=== PATIENT | male | born 1955 | race Caucasian/White ===

== ENCOUNTER 2018-02-10 07:06 | Day surgery (SDC) | payer BC, SELFPAY ==
--- NOTE | 2018-02-09 15:09 | POEE_ITS ---
History of Present Illness Chief Complaint: Progressive decreased vision, left eye Narrative: The patient is a 62-year-old male with history of progressive decreased vision at both distance and near in his left eye. He also notes significant difficulty with glare. He has a history of myopia but does not take his glasses off to read. On examination he was noted to have bilateral nuclear and cortical cataract with posterior subcapsular cataract of the left eye. The option of cataract surgery was offered to the patient and he felt he was symptomatic enough that he wished to proceed. NOTE: The Chief Complaint, HPI, Past Medical History, Past Surgical History, Family History, Social History, Medications, and complete Ophthalmic Exam with detailed Assessment and Plan have already been documented in the patient's outpatient ophthalmic record and are not covered again in detail here. PFSH Cortical cataract of left eye (Acute) Nuclear sclerotic cataract of left eye (Acute) Posterior subcapsular age-related cataract of left eye (Acute) DM (diabetes mellitus) Family History Grandmother No problems noted. Colonoscopy - MAC (03/19/16) hand surgery Family History Grandmother No problems noted. Medical History Cortical cataract of left eye (Acute) Nuclear sclerotic cataract of left eye (Acute) Posterior subcapsular age-related cataract of left eye (Acute) DM (diabetes mellitus) Social History Smoking/Tobacco Use Status: Former Tobacco Use Surgical History Colonoscopy - MAC (03/19/16) hand surgery Social History Smoking/Tobacco Use Status: Former Tobacco Use Meds Home Medications Medication Instructions Recorded Confirmed Type aspirin [Low Dose Aspirin Ec] 81 mg PO HS tab-cap NS 02/06/16 02/06/18 History insulin glargine [Lantus Solostar] 40 - 45 u SUB-Q HS NS 02/06/16 02/06/18 History insulin lispro [Humalog Syringe] 5 - 15 u SUB-Q QID NS 02/06/16 02/05/18 History losartan 25 mg PO HS tab-cap NS 02/06/16 02/06/18 History lovastatin 20 mg PO HS tab-cap NS 02/06/16 02/06/18 History Allergies Allergy/AdvReac Type Severity Reaction Status Date / Time lisinopril Allergy Unverified 02/06/16 10:21 Exam OCULAR EXAM:: Most recent ocular examination reveals best corrected vision of 20 /20 right eye, 20/30 left eye. Pupils equal, round, and reactive without afferent pupillary defect intraocular pressure is 17 OD, 16 OS. Extraocular motility is normal. Slit-lamp examination reveals pupils dilating only to 4 mm OU. Anterior chamber depth is intermediate. A 1+ nuclear/cortical cataract is present OD. 1+ nuclear/cortical cataract OS with 2+ posterior subcapsular cataract OS. Dilated funduscopic examination reveals a disc cupping of 0.6 OD 0.7 OS with trace peyton-papillary atrophy. The retinal vasculature is normal. There is some mild macular pigmentary changes. Peripheral retina and vitreous is normal. BRIGHTNESS ACUITY TESTING (BAT):: Brightness acuity testing of the left eye off is 20/30, low is 20/25, medium is 20/30, high is 20/40 Assessment and Plan (1) Posterior subcapsular age-related cataract of left eye: Current visit: No Status: Acute Assessment: Visually significant cataract, left eye. Plan: Cataract extraction with intraocular lens implantation, left eye (2) Nuclear sclerotic cataract of left eye: Current visit: No Status: Acute Assessment: Visually significant cataract, left eye. Plan: Cataract extraction with intraocular lens implantation, left eye (3) Cortical cataract of left eye: Current visit: No Status: Acute Assessment: Visually significant cataract, left eye. Plan: Cataract extraction with intraocular lens implantation, left eye Note: NOTE:: The details of the planned surgery, including the risks, indications, limitations,expectations,outcome and possible complications were explained to the patient. The patient understands the complications including, but not limited to: infection, hemorrhage, posterior dislocation of the lens or nuclear fragments which may require the intervention of a vitreoretinal surgeon, possible loss of the eye, or from anesthetic complications. The patient has been made aware of the option of not having surgery, that vision following surgery may not be equal to that prior to surgery, and that the planned surgery may not achieve the intended results. Following this discussion, which the patient appeared to understand, the patient wishes to proceed with cataract surgery with lens implantation of the affected eye to improve and maximize vision.
[2018-02-10 07:14] VITALS: BP 135/74; PULSE 65; RESP 16; TEMP 35.6; O2SAT 96
[2018-02-10] MEDS: Tropicam./Phenyleph. (1/2.5%) 5 ML BTL OS ×3 (07:31→07:37)
[2018-02-10] MEDS: Tetracaine 0.5% 4 ML BTL OS ×4 (07:31→08:33)
[2018-02-10] MEDS: Balanced Salt Soln.-PLUS 500 ML BAG (08:33)
[2018-02-10] MEDS: Lidocaine 2% Jelly 6 ML SYR (08:35)
[2018-02-10] MEDS: Lidocaine 1% Pres-Free 5 ML VIAL (08:36)
[2018-02-10] MEDS: Povidone-Iodine Ophth 30 ML BTL (08:56)
--- NOTE | 2018-02-10 09:00 | W.PM.DSUDISC ---
Discharge Plan Discharge Details Attending Provider: Raghav Schuster Primary Care Provider: Jay Tobias Home Meds and New Rx's Prescriptions: No Action aspirin [Aspirin Low Dose] 81 MG tablet,delayed release (DR/EC) 81 mg PO HS RF: 0 losartan 25 MG tablet 25 mg PO HS RF: 0 lovastatin 20 MG tablet 20 mg PO HS RF: 0 insulin lispro [Humalog KwikPen Insulin] 100 UNIT/1 ML insulin pen 5 - 15 u Sub-Q QID RF: 0 insulin glargine [Lantus Solostar U-100 Insulin] 100 UNIT/1 ML insulin pen 40 - 45 u Sub-Q HS RF: 0 Discharge Instructions Stand Alone Forms: Post-op Topical Cataract, Reid Oliver (DSU) DS: Diagnosis Discharge Diagnosis (1) Posterior subcapsular age-related cataract of left eye: Status: Resolved (2) Nuclear sclerotic cataract of left eye: Status: Resolved (3) Cortical cataract of left eye: Status: Resolved (4) Status post cataract extraction and insertion of intraocular lens of left eye: Status: Chronic
--- NOTE | 2018-02-10 09:00 | W.PM.OP ---
Date of service: 02/10/18 Time of Service: 09:00 Operative Note PRE-OP DIAGNOSIS: Cataract, left eye POST-OP DIAGNOSIS: same PROCEDURE: Cataract extraction using phacoemulsification with intraocular lens implant, left eye SURGEON: Raghav Schuster ANESTHESIA: MAC and local (sub-tenon's anesthetic infiltration) PATHOLOGY: none sent COMPLICATIONS: None Patient was transported to: same day Patient's condition: stable Implants: Venkat and [employer] / [employer] Tecnis ZCB00 Indications: Progressive decreased vision due to cataract, left eye Procedure Description: CATARACT SURGERY OPERATIVE REPORT PREOPERATIVE DIAGNOSIS: Nuclear/cortical/posterior subcapsular cataract, left eye POSTOPERATIVE DIAGNOSIS: Same OPERATION: Cataract extraction using phacoemulsification with posterior chamber intraocular lens implant, left eye. 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 He has developed a significant nuclear cortical and posterior subcapsular cataract of the left eye. The option of cataract surgery was offered to the patient and he felt he was symptomatic enough that he wished to proceed. PROCEDURE: The correct surgical eye was identified and marked as the left eye and the pupil was dilated in the preoperative area using mydriatics and cycloplegics. The dilated pupil size was 6.5 mm. Oral sedation was administered in the form of an Imprimis MKO Melt (midazolam 3mg/ketamine 25mg/ondansetron 2mg). The patient was brought to the operating room where cardiopulmonary monitoring was instituted and surgical time-out was performed, confirming the correct operative eye and IOL power. Topical anesthesia was administered and ophthalmic povidone-iodine 5% was instilled into the conjunctival fornices. Lidocaine gel was applied to the cornea and the peyton-ocular area was prepped with Betadine 10% solution and draped in the usual sterile fashion for intraocular surgery, including an aperture drape. A Tegaderm transparent film dressing was cut in half and used to cover the lashes and lid margins. Care was taken to sequester the lashes and lid margins under the Tegaderm dressing. A lid speculum was placed between the lids of the operative eye and the Estrellita-Nik operating microscope was maneuvered into position. Rosy scissors were then used to make a conjunctival buttonhole approximately 6mm posterior to the limbus in the inferonasal quadrant. Blunt dissection was carried out to expose bare sclera, and a blunt-tipped sub-tenon?s anesthesia cannula was introduced and passed posteriorly along the globe where non-preserved plain lidocaine was injected into posterior sub-Tenon?s space. A sideport knife was used to make a paracentesis port at the 12:00 postion and the anterior chamber was filled with Healon GV. A 2.4mm keratome knife was used to create a half-thickness groove at the limbus and then to construct a three-plane near-clear corneal tunnel extending 2.0mm into clear cornea at the 3:00 position. A flap was raised on the anterior capsule and capsulorhexis forceps were used to complete a continuous curvilinear capsulorhexis of 5.5 mm. Balanced salt solution was then used to perform cortical cleaving hydrodissection and nuclear hydrodelineation until the lens could be freely rotated within the capsular bag. The lens nucleus was then disassembled and removed within the capsular bag and iris plane using phacoemulsification. Residual cortical material was removed using the 45-degree angled silicone I/A tip with 0.3mm port. The posterior capsule was carefully polished to remove as much residual lens epithelial cells as safely possible. The capsular bag was then inflated and the anterior chamber deepened with viscoelastic. The lens implant described above was inserted into the capsular bag using the STACY Inaja Injector. A Kuglen hook was used to dial the IOL into position. Residual viscoelastic was then removed first from posterior to the IOL, then from the anterior chamber using the I/A handpiece. The lens implant was noted to center nicely within the capsular bag. The incisions were stromally hydrated, and the anterior chamber was reformed using BSS. Then 0.4cc of moxifloxacin 1.5mg/ml were injected into the capsular bag and anterior chamber. The incisions were checked with a Weck spear and found to be secure. Several drops of ophthalmic povidone-iodine 5% were then applied to the eye followed by two drops of Imprimis combination moxifloxacin/dexamethasone solution. The drapes were removed and a clear plastic protective eye shield was placed over the eye. The patient was then returned to [facility] in stable condition.
== END 2018-02-10 09:30 | disposition home or self-care (01) ==
LOC: SUR 07:06
PROVIDERS: PCP Family Medicine; Visit Provider Ophthalmology
PROC: (CPT 66984; principal; 2018-02-10 08:30)
DX: H25.812 Combined forms of age-related cataract, left eye (principal); E11.9 Type 2 diabetes mellitus without complications; Z79.4 Long term (current) use of insulin
CPT/HCPCS: 66984; V2632